=== PATIENT | male | born 1940 | race Caucasian/White ===

== ENCOUNTER 2023-12-26 12:53 | Outpatient (RCR) | payer MEDICARE, BC, SELFPAY | END 2024-01-20 23:59 | disposition home or self-care (01) | LOC: SCTC 12:53 | PROVIDERS: PCP Family Medicine; Referring Provider Family Medicine; Visit Provider Internal Medicine Hematology & Oncology | DX: C91.10 Chronic lymphocytic leukemia of B-cell type not having achieved remission (principal); C61 Malignant neoplasm of prostate; Z79.818 Long term (current) use of other agents affecting estrogen receptors and estrogen levels | CPT/HCPCS: 99212; G0463 ==

== ENCOUNTER 2024-02-05 14:31 | Outpatient (RCR) | payer MEDICARE, BC, SELFPAY | END 2024-02-20 23:59 | disposition home or self-care (01) | LOC: SCTC 14:31 | PROVIDERS: PCP Family Medicine; Referring Provider Family Medicine; Visit Provider Internal Medicine Hematology & Oncology | DX: Z51.11 Encounter for antineoplastic chemotherapy (principal); C61 Malignant neoplasm of prostate; Z92.3 Personal history of irradiation; C91.10 Chronic lymphocytic leukemia of B-cell type not having achieved remission | CPT/HCPCS: 96402; J9217 ==

== ENCOUNTER → 2024-02-05 | Outpatient (CLI) | payer MEDICARE, BC, SELFPAY ==
[2024-02-05 09:12] LABS: Alanine Aminotransferase 9 U/L (10-49); Albumin, Serum 4.6 gm/dL (3.4-4.8); Albumin/Globulin Ratio 1.9 (1.2-2.2); Alkaline Phosphatase 74 U/L (46-116); Anion Gap 7 (7-16); Aspartate Amino Transferase 18 U/L (0-34); BUN/Creatinine Ratio 11 Ratio (12-20); Bilirubin,Total 0.5 mg/dL (0.3-1.2); Blood Urea Nitrogen 17 mg/dL (9-23); Carbon Dioxide 27.9 mMol/L (20.0-31.0); Cardiac Risk Estimate 5.1 RATIO (4.0-6.7); Chloride 104 mMol/L (98-107); Cholesterol 228 mg/dL (132-200); Creatinine (Component) 1.5 mg/dL (0.6-1.3); Globulin 2.4 gm/dL (2.3-3.5); Glucose 102 mg/dL (74-106); HDL Cholesterol 45 mg/dL (40-60); LDL Cholesterol,Calculated 143 mg/dL (0-130); Osmolality,Calculated 279 (275-295); Potassium 4.6 mMol/L (3.4-5.1); Sodium 139 mMol/L (136-145); Triglycerides 199 mg/dL (30-150); eGFR 46 See Note
[2024-02-05 12:09] LABS: Glucose Estimated Average 111 mg/dL (80-131); Hemoglobin A1C 5.5 % Hgb (4.8-6.0)
== END | disposition home or self-care (01) ==
LOC: CDIM 07:54
PROVIDERS: PCP Family Medicine; Referring Provider Physician Assistant; Visit Provider Physician Assistant
DX: E78.5 Hyperlipidemia, unspecified (principal); R73.01 Impaired fasting glucose
CPT/HCPCS: 36415; 80053; 80061; 83036

== ENCOUNTER 2024-03-27 11:16 | Outpatient (RCR) | payer MEDICARE, BC, SELFPAY ==
--- NOTE | 2024-03-27 13:22 | CTCFLWUP_ITS ---
Patient: KITTY STRONG : 1940 Page 2 of 2 FOLLOW UP NOTE DATE OF SERVICE: 03/27/2024 NAME: KITTY STRONG ACCOUNT: [id number] : 1940 AGE: 83 INTERVAL HISTORY: Patient is here to follow-up on his labs. No new complaints ONCOLOGY HISTORY: DIAGNOSIS: Chronic lymphocytic leukemia of B-cell type in remission [ICD10] C91.11; Chronic lymphocytic leukemia of B-cell type not having achieved remission [ICD10] C91.10 TREATMENT HISTORY: Care?Plan Start?Date Cycle Day Intent Lupron?22.5?mg?q?3?mon 10/24/2023 1 90 Curative?(adjuvant) HISTORY OF PRESENT ILLNESS: Kitty Strong is a 83-year-old ENG speaking male with history of chronic lymphocytic leukemia who is referred back to our clinic for continuation of his care. Mr. Strong was initially diagnosed with chronic lymphocytic leukemia in June 2017. 03/28/2017: WBC 11.5, absolute lymphocyte count 7.29, hemoglobin 15.9, platelets 181,000. Peripheral smear showed lymphocytosis with smudge cells. 06/27/2017: Flow cytometry? 12/12/2019: WBC 16.6, ALC 11.1, ANC 4.3, hemoglobin 15.9, MCV 95, platelets 205,000. 10/19/2022: WBC 17.01, 48.0% lymphocytes, smudge cells present. 08/17/2023: Neotype CLL FISH panel? OTHER MEDICAL HISTORY/CONDITIONS: asthma??prostate?issues carpal tunnel surg x 2 left orif x 2019 ?Clone Other Med Hx? FAMILY HISTORY: Patient?denies?family?cancer?history. ?Clone Family Hx? 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 Tobacco?Pack?per?Day:?0 ETOH?Use:?deneis Drug?Note:?denies Social?History?Note:?live??with? ?Clone Social Hx? MEDICATIONS: 1. Flomax - 0.4 mg 1 Capsule Daily 2. multivitamin - 1 Capsule Daily?Palabra Meds? Medications Last Reconciled by Marine Weinberg MA on 03/27/2024 ALLERGIES: No Known Drug Allergies REVIEW OF SYSTEMS: A complete 14-point review of systems was performed and is negative except as noted in interval history. PHYSICAL EXAMINATION: VITAL SIGNS: Temperature?98.6, B/P?103/65, Oxygen?Saturation?97% Weight?207?lbs PAIN: 0 - No pain ECOG Performance Status: 0 - Asymptomatic and fully active GENERAL APPEARANCE: Appears well, in no apparent distress, appropriately interactive. HEENT: Normocephalic, no temporal wasting, normal conjunctiva, no scleral icterus, normal hearing, lips without lesions, neck normal range of motion. CARDIOVASCULAR: Not assessed. PULMONARY: Normal respiratory effort, no respiratory distress or use of accessory muscles, speaking in full sentences, no tachypnea. EXTREMITIES: No pedal edema or cyanosis. SKIN: Normal skin appearance. NEUROLOGIC: Alert and oriented x4. PSHYCHIATRIC: Appropriate affect, mood normal, behavior normal, intact thought and speech. LABORATORY DATA: I have personally reviewed and interpreted each of the patient?s relevant lab tests, abnormal findings are below: Date 03/27/24 ??WHITE?BLOOD?COUNT?(Thou/mm3) 13.6?H ??RED?BLOOD?COUNT?(Miln/mm3) 4.48?L ??HEMOGLOBIN?(gm/dl) 14.0 ??HEMATOCRIT?(%) 42.4 ??PLATELET?COUNT?(Thou/mm3) 185 ??NEUTROPHILS?%,?AUTO?(%) 27?L ??LYMPH?%,?AUTO?(%) 65?H ??NEUTROPHILS,?AUTO?(Thou/mm3) 3.7 ASSESSMENT/PLAN: #1 stage I asymptomatic chronic lymphocytic leukemia, CD38 negative. Neotype CLL FISH panel normal. Reviewed labs and are stable Continue Lupron #2 localized prostate cancer s/p radiation therapy at [facility] completed in May 2023. On Lupron Take calcium nd vit D3 Kegel exercises CBC CMP reviewed CBC CMP PSA RETURN TO CLINIC: 6 months BILLING AND COMPLIANCE: I reviewed external records from providers outside my specialty as summarized above. I spent a total of 50 minutes on this patient?s care on the day of their visit excluding time spent related to any billed procedures. This time includes time spent with the patient as well as time spent documenting in the medical record, reviewing patients records and tests, obtaining history, placing orders, communicating with other healthcare professionals, counseling the patient, family or caregiver, and/or care coordination for the diagnoses above. Electronically Signed by: Sebastian Romero MD T: 1:20 PM CC: PCP: Holly Cook Referring: Holly Cook This document was completed utilizing speech recognition software. Grammatical errors, random word insertions, pronoun errors, and incomplete sentences are an occasional consequence of this system due to software limitations, ambient noise, and hardware issues. Any formal questions or concerns about the content, text or information contained within the body of this dictation should be directly addressed to the provider for clarification.
== END 2024-04-19 23:59 | disposition home or self-care (01) ==
LOC: SCTC 11:16
PROVIDERS: PCP Family Medicine; Referring Provider Family Medicine; Visit Provider Internal Medicine Hematology & Oncology
DX: Z71.2 Person consulting for explanation of examination or test findings (principal); C91.10 Chronic lymphocytic leukemia of B-cell type not having achieved remission; C61 Malignant neoplasm of prostate; Z79.818 Long term (current) use of other agents affecting estrogen receptors and estrogen levels; Z92.3 Personal history of irradiation
CPT/HCPCS: 99212; G0463

== ENCOUNTER → 2024-03-27 | Outpatient (CLI) | payer MEDICARE, BC, SELFPAY ==
[2024-03-27 09:17] LABS: Basophils # (Auto) 0.1 Thou/mm3 (0.0-0.2); Basophils % (Auto) 0 % (0-2.5); Eosinophils # (Auto) 0.5 Thou/mm3 (0.0-0.5); Eosinophils % (Auto) 4 % (0-10); Hematocrit 42.4 % (41.0-53.0); Immature Granulocytes % (Auto) 0 % (0-0); Immature Granulocytes Auto 0.04 Thou/mm3 (0.00-0.00); Lymphocytes # (Auto) 8.8 Thou/mm3 (1.0-4.8); Lymphocytes % (Auto) 65 % (10-50); Mean Corpuscular Hemoglobin 31.3 pg (25.0-35.0); Mean Corpuscular Volume 95 fL (80-100); Monocytes # (Auto) 0.6 Thou/mm3 (0.0-0.8); Monocytes % (Auto) 4 % (0-12); Neutrophils # (Auto) 3.7 Thou/mm3 (1.8-7.7); Neutrophils % (Auto) 27 % (37-80); Nucleated Red Blood Cell % 0 /100 WBC (0); Platelet Count 185 Thou/mm3 (140-440); RDW Standard Deviation 46.8 fL (35.1-43.9); Red Blood Count 4.48 Miln/mm3 (4.50-5.90); White Blood Count 13.6 Thou/mm3 (3.8-10.6)
[2024-03-27 09:50] LABS: Alanine Aminotransferase 20 U/L (10-49); Albumin, Serum 4.1 gm/dL (3.4-4.8); Albumin/Globulin Ratio 1.6 (1.2-2.2); Alkaline Phosphatase 68 U/L (46-116); Anion Gap 9 (7-16); Aspartate Amino Transferase 15 U/L (0-34); BUN/Creatinine Ratio 14 Ratio (12-20); Bilirubin,Total 0.4 mg/dL (0.3-1.2); Blood Urea Nitrogen 18 mg/dL (9-23); Calcium 9.3 mg/dL (8.3-10.6); Calcium (Corrected) 9.3 mg/dL (8.5-10.1); Carbon Dioxide 28.5 mMol/L (20.0-31.0); Chloride 102 mMol/L (98-107); Creatinine (Component) 1.3 mg/dL (0.6-1.3); Globulin 2.5 gm/dL (2.3-3.5); Glucose 107 mg/dL (74-106); Osmolality,Calculated 279 (275-295); Potassium 4.2 mMol/L (3.4-5.1); Sodium 139 mMol/L (136-145); Total Protein 6.6 gm/dL (5.7-8.2); eGFR 55 See Note
[2024-03-27 14:48] LABS: Prostate Specific Antigen < 0.10 ng/mL (0-4.00)
[2024-03-27 16:51] LABS: Path Review Blood Smear Sent to Pathologist
== END | disposition home or self-care (01) ==
LOC: SCTO 08:30
PROVIDERS: PCP Family Medicine; Referring Provider Internal Medicine Hematology & Oncology; Visit Provider Internal Medicine Hematology & Oncology
DX: D72.820 Lymphocytosis (symptomatic) (principal)
CPT/HCPCS: 36415; 80053; 84153; 85025

== ENCOUNTER 2024-05-06 14:26 | Outpatient (RCR) | payer MEDICARE, BC, SELFPAY | END 2024-05-20 23:59 | disposition home or self-care (01) | LOC: SCTC 14:26 | PROVIDERS: PCP Family Medicine; Referring Provider Family Medicine; Visit Provider Internal Medicine Hematology & Oncology | DX: Z51.11 Encounter for antineoplastic chemotherapy (principal); C61 Malignant neoplasm of prostate; C91.10 Chronic lymphocytic leukemia of B-cell type not having achieved remission; Z92.3 Personal history of irradiation; Z79.818 Long term (current) use of other agents affecting estrogen receptors and estrogen levels | CPT/HCPCS: 96402; J9217 ==

== ENCOUNTER → 2024-06-10 | Outpatient (CLI) | payer MEDICARE, BC, SELFPAY ==
--- NOTE | 2024-06-10 11:02 | XR_ITS ---
Examination: Foot, left, 3 views Technique: AP, oblique, lateral views foot, 3 views Date and time of exam: June 10, 2024 1144 hours INDICATIONS: Left foot swelling and pain beginning 4 days ago FINDINGS: Severe osteopenia Moderate bunion deformity Erosions distal medial first metatarsal No fracture No opaque foreign body IMPRESSION: Small erosions medial distal first metatarsal, differential would include erosive arthritis such as gouty arthropathy as well as early osteomyelitis, clinical correlation advised
[2024-06-10 13:50] LABS: Basophils % (Auto) 0 % (0-2.5); Eosinophils # (Auto) 0.3 Thou/mm3 (0.0-0.5); Eosinophils % (Auto) 3 % (0-10); Hematocrit 42.3 % (41.0-53.0); Hemoglobin 13.9 g/dL (13.5-16.0); Immature Granulocytes % (Auto) 0 % (0-0); Immature Granulocytes Auto 0.05 Thou/mm3 (0.00-0.00); Lymphocytes # (Auto) 6.7 Thou/mm3 (1.0-4.8); Lymphocytes % (Auto) 54 % (10-50); Mean Corpuscular HGB Conc 32.9 g/dl (31.0-37.0); Mean Corpuscular Hemoglobin 31.4 pg (25.0-35.0); Mean Corpuscular Volume 96 fL (80-100); Monocytes # (Auto) 0.7 Thou/mm3 (0.0-0.8); Monocytes % (Auto) 5 % (0-12); Neutrophils # (Auto) 4.7 Thou/mm3 (1.8-7.7); Neutrophils % (Auto) 38 % (37-80); Nucleated Red Blood Cell % 0 /100 WBC (0); Platelet Count 185 Thou/mm3 (140-440); RDW Standard Deviation 47.8 fL (35.1-43.9); Red Blood Count 4.43 Miln/mm3 (4.50-5.90); White Blood Count 12.4 Thou/mm3 (3.8-10.6)
[2024-06-10 14:06] LABS: Alanine Aminotransferase 15 U/L (10-49); Albumin, Serum 4.3 gm/dL (3.4-4.8); Albumin/Globulin Ratio 1.5 (1.2-2.2); Alkaline Phosphatase 72 U/L (46-116); Anion Gap 6 (7-16); Aspartate Amino Transferase 18 U/L (0-34); BUN/Creatinine Ratio 14 Ratio (12-20); Bilirubin,Total 0.4 mg/dL (0.3-1.2); Blood Urea Nitrogen 19 mg/dL (9-23); Calcium 9.9 mg/dL (8.3-10.6); Calcium (Corrected) 9.9 mg/dL (8.5-10.1); Carbon Dioxide 28.7 mMol/L (20.0-31.0); Chloride 104 mMol/L (98-107); Creatinine (Component) 1.4 mg/dL (0.6-1.3); Globulin 2.8 gm/dL (2.3-3.5); Glucose 102 mg/dL (74-106); Osmolality,Calculated 279 (275-295); Sodium 139 mMol/L (136-145); Total Protein 7.1 gm/dL (5.7-8.2); Uric Acid 7.3 mg/dL (3.7-9.2); eGFR 50 See Note
== END | disposition home or self-care (01) ==
LOC: CDIM 10:59 → COPL 12:05
PROVIDERS: PCP Physician Assistant; Referring Provider Physician Assistant; Visit Provider Physician Assistant
DX: M79.672 Pain in left foot (principal)
CPT/HCPCS: 36415; 73630; 80053; 84550; 85025

== ENCOUNTER 2024-08-05 14:33 | Outpatient (RCR) | payer MEDICARE, BC, SELFPAY | END 2024-08-19 23:59 | disposition home or self-care (01) | LOC: SCTC 14:33 | PROVIDERS: PCP Physician Assistant; Referring Provider Physician Assistant; Visit Provider Internal Medicine Hematology & Oncology | DX: Z51.11 Encounter for antineoplastic chemotherapy (principal); C61 Malignant neoplasm of prostate; C91.10 Chronic lymphocytic leukemia of B-cell type not having achieved remission | CPT/HCPCS: 96402; J9217 ==

== ENCOUNTER 2024-11-04 14:40 | Outpatient (RCR) | payer MEDICARE, BC, SELFPAY | END 2024-11-19 23:59 | disposition home or self-care (01) | LOC: SCTC 14:40 | PROVIDERS: PCP Physician Assistant; Referring Provider Physician Assistant; Visit Provider Internal Medicine Hematology & Oncology | DX: Z51.11 Encounter for antineoplastic chemotherapy (principal); C61 Malignant neoplasm of prostate; Z92.3 Personal history of irradiation; C91.10 Chronic lymphocytic leukemia of B-cell type not having achieved remission | CPT/HCPCS: 96402; J9217 ==

== ENCOUNTER → 2024-11-13 | Outpatient (CLI) | payer MEDICARE, BC, SELFPAY ==
[2024-11-13 10:54] LABS: Prostate Specific Antigen < 0.10 ng/mL (0-4.00)
[2024-11-13 10:56] LABS: Cardiac Risk Estimate 5.1 RATIO (4.0-6.7); Cholesterol 197 mg/dL (132-200); HDL Cholesterol 39 mg/dL (40-60); LDL Cholesterol,Calculated 112 mg/dL (0-130); Triglycerides 228 mg/dL (30-150)
[2024-11-20 07:05] LABS: Testosterone,Total* 4 ng/dL (250-1100)
== END | disposition home or self-care (01) ==
LOC: COPL 08:59
PROVIDERS: PCP Physician Assistant; Referring Provider Internal Medicine Cardiovascular Disease; Visit Provider Internal Medicine Cardiovascular Disease
DX: E78.41 Elevated Lipoprotein(a) (principal); E78.5 Hyperlipidemia, unspecified; N28.9 Disorder of kidney and ureter, unspecified; R73.03 Prediabetes; R94.31 Abnormal electrocardiogram [ECG] [EKG]; Z03.89 Encounter for observation for other suspected diseases and conditions ruled out; C61 Malignant neoplasm of prostate
CPT/HCPCS: 36415; 80061; 84153; 84403

== ENCOUNTER 2024-11-25 11:47 | Outpatient (RCR) | payer MEDICARE, BC, SELFPAY ==
--- NOTE | 2024-11-25 13:20 | CTCFLWUP_ITS ---
Patient: KITTY STRONG : 1940 Page 4 of 5 FOLLOW UP NOTE DATE OF SERVICE: 11/25/2024 NAME: KITTY STRONG ACCOUNT: [id number] : 1940 AGE: 84 INTERVAL HISTORY: Patient is here to follow-up on his labs. No new complaints ONCOLOGY HISTORY: DIAGNOSIS: Chronic lymphocytic leukemia of B-cell type in remission [ICD10] C91.11; Chronic lymphocytic leukemia of B-cell type not having achieved remission [ICD10] C91.10 TREATMENT HISTORY: Care?Plan Start?Date Cycle Day Intent Lupron?22.5?mg?q?3?mon 10/24/2023 1 90 Curative?(adjuvant) HISTORY OF PRESENT ILLNESS: Kitty Strong is a 84-year-old ENG speaking male with history of chronic lymphocytic leukemia who is referred back to our clinic for continuation of his care. Mr. Strong was initially diagnosed with chronic lymphocytic leukemia in June 2017. 03/28/2017: WBC 11.5, absolute lymphocyte count 7.29, hemoglobin 15.9, platelets 181,000. Peripheral smear showed lymphocytosis with smudge cells. 06/27/2017: Flow cytometry? 12/12/2019: WBC 16.6, ALC 11.1, ANC 4.3, hemoglobin 15.9, MCV 95, platelets 205,000. 10/19/2022: WBC 17.01, 48.0% lymphocytes, smudge cells present. 08/17/2023: Neotype CLL FISH panel? OTHER MEDICAL HISTORY/CONDITIONS: asthma??prostate?issues carpal tunnel surg x 2 left orif x 2019 FAMILY HISTORY: Patient?denies?family?cancer?history. 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 Tobacco?Pack?per?Day:?0 ETOH?Use:?deneis Drug?Note:?denies Social?History?Note:?live??with? MEDICATIONS: 1. Flomax - 0.4 mg 1 Capsule Daily 2. Lipitor - 20 mg 1 tab Daily 3. multivitamin - 1 Capsule Daily Medications Last Reconciled by Marine Frye MD on 11/25/2024 ALLERGIES: No Known Drug Allergies REVIEW OF SYSTEMS: A complete 14-point review of systems was performed and is negative except as noted in interval history. PHYSICAL EXAMINATION: VITAL SIGNS: Temperature?98.3, B/P?104/63, Oxygen?Saturation?96% Weight?203?lbs (Change?since?11/04/24:?0?lbs) PAIN: 0 - No pain ECOG Performance Status: 0 - Asymptomatic and fully active GENERAL APPEARANCE: Appears well, in no apparent distress, appropriately interactive. HEENT: Normocephalic, no temporal wasting, normal conjunctiva, no scleral icterus, normal hearing, lips without lesions, neck normal range of motion. CARDIOVASCULAR: Not assessed. PULMONARY: Normal respiratory effort, no respiratory distress or use of accessory muscles, speaking in full sentences, no tachypnea. EXTREMITIES: No pedal edema or cyanosis. SKIN: Normal skin appearance. NEUROLOGIC: Alert and oriented x4. PSHYCHIATRIC: Appropriate affect, mood normal, behavior normal, intact thought and speech. LABORATORY DATA: I have personally reviewed and interpreted each of the patient?s relevant lab tests, abnormal findings are below: Date 03/27/24 06/10/24 ??WHITE?BLOOD?COUNT?(Thou/mm3) 13.6?H 12.4?H ??RED?BLOOD?COUNT?(Miln/mm3) 4.48?L 4.43?L ??HEMOGLOBIN?(gm/dl) 14.0 13.9 ??HEMATOCRIT?(%) 42.4 42.3 ??PLATELET?COUNT?(Thou/mm3) 185 185 ??NEUTROPHILS?%,?AUTO?(%) 27?L 38 ??LYMPH?%,?AUTO?(%) 65?H 54?H ??NEUTROPHILS,?AUTO?(Thou/mm3) 3.7 4.7 ??GLUCOSE,RANDOM?(mg/dL) 107?H 102 ??BLOOD?UREA?NITROGEN?(mg/dL) 18 19 ??CREATININE?(mg/dL) 1.30 1.40?H ??SODIUM?(mmol/L) 139 139 ??POTASSIUM?(mmol/L) 4.2 4.0 ??CHLORIDE?(mmol/L) 102 104 ??CrCl?(CandG)?(ml/min) 48.14 44.86 ??AST/SGOT?(Unit/L) 15 18 ??ALT/SGPT?(Unit/L) 20 15 ??ALKALINE?PHOSPHATASE?(Unit/L) 68 72 ??BILIRUBIN,?TOTAL?(mg/dL) 0.4 0.4 ??PROTEIN?TOTAL?(gm/dl) 6.6 7.1 ??ALBUMIN,?SERUM?(gm/dl) 4.1 4.3 ??GLOBULIN?(gm/dl) 2.5 2.8 ??ALBUMIN/GLOBULIN?RATIO 1.6 1.5 ??CALCIUM,?SERUM?(mg/dL) 9.3 9.9 ??CALCIUM?SERUM?(CORRECTED)?(mg/dL) 9.3 9.9 ASSESSMENT/PLAN: #1 stage I asymptomatic chronic lymphocytic leukemia, CD38 negative. Neotype CLL FISH panel normal. Reviewed labs and are stable Continue Lupron #2 localized prostate cancer s/p radiation therapy at [facility] completed in May 2023. On Lupron Take calcium nd vit D3 Kegel exercises CBC CMP reviewed CBC CMP PSA Continue Lupron RETURN TO CLINIC: I reviewed the diagnosis, prognosis, and recommended treatment/procedure options with the patient (and/or their legal veterans service representative), including the potential benefits, risks, side effects and alternative therapies. We also discussed the option of no treatment and the possibility of clinical trial participation, if applicable. All questions were addressed, and they demonstrated understanding. They provided informed consent to proceed with the proposed plan of care. BILLING AND COMPLIANCE: I reviewed external records from providers outside my specialty as summarized above. I spent a total of 50 minutes on this patient?s care on the day of their visit excluding time spent related to any billed procedures. This time includes time spent with the patient as well as time spent documenting in the medical record, reviewing patients records and tests, obtaining history, placing orders, communicating with other healthcare professionals, counseling the patient, family or caregiver, and/or care coordination for the diagnoses above. Electronically Signed by: Sebastian Romero MD T: 1:18 PM CC: PCP: Lo Kuhn Referring: oL Kuhn This document was completed utilizing speech recognition software. Grammatical errors, random word insertions, pronoun errors, and incomplete sentences are an occasional consequence of this system due to software limitations, ambient noise, and hardware issues. Any formal questions or concerns about the content, text or information contained within the body of this dictation should be directly addressed to the provider for clarification.
== END 2024-12-20 23:59 | disposition home or self-care (01) ==
LOC: SCTC 11:47
PROVIDERS: PCP Physician Assistant; Referring Provider Physician Assistant; Visit Provider Internal Medicine Hematology & Oncology
DX: C91.10 Chronic lymphocytic leukemia of B-cell type not having achieved remission (principal); C61 Malignant neoplasm of prostate; Z92.3 Personal history of irradiation; Z79.818 Long term (current) use of other agents affecting estrogen receptors and estrogen levels
CPT/HCPCS: 99212; G0463

== ENCOUNTER → 2025-01-06 | Outpatient (CLI) | payer MEDICARE, BC, SELFPAY ==
[2025-01-06 09:07] LABS: Collection Type, Urine Clean Catch; Squamous Epithelial Cell,Urine 0 /hpf (0-5)
[2025-01-06 09:43] LABS: Bilirubin,Urine Negative (Negative); Blood,Urine Negative (Negative); Clarity,Urine Clear (Clear/Hazy); Color,Urine Colorless (Lt Yel-Yel); Culture Indicated,Urine Not Indicated; Glucose, Urine Negative (Negative); Ketones,Urine Negative (Negative); Leukocyte Esterase,Urine Negative (Negative); Nitrite,Urine Negative (Negative); PH,Urine 6.0 (5.0-7.0); Protein,Urine Negative (Neg - Trace); RBC,Urine 1 /hpf (0-3); Specific Gravity,Urine 1.011 (1.001-1.035); Urobilinogen,Urine Negative mg/dL (0.0-1.0); WBC,Urine < 1 /hpf (0-5)
[2025-01-06 09:52] LABS: Alanine Aminotransferase 17 U/L (10-49); Albumin, Serum 4.6 gm/dL (3.4-4.8); Albumin/Globulin Ratio 2.0 (1.2-2.2); Alkaline Phosphatase 66 U/L (46-116); Anion Gap 10 (7-16); Aspartate Amino Transferase 21 U/L (0-34); BUN/Creatinine Ratio 13 Ratio (12-20); Bilirubin,Total 0.4 mg/dL (0.3-1.2); Blood Urea Nitrogen 19 mg/dL (9-23); Calcium 10.0 mg/dL (8.3-10.6); Calcium (Corrected) 10.0 mg/dL (8.5-10.1); Carbon Dioxide 27.1 mMol/L (20.0-31.0); Cardiac Risk Estimate 3.4 RATIO (4.0-6.7); Chloride 105 mMol/L (98-107); Cholesterol 149 mg/dL (132-200); Creatinine (Component) 1.5 mg/dL (0.6-1.3); Globulin 2.3 gm/dL (2.3-3.5); Glucose 113 mg/dL (74-106); HDL Cholesterol 44 mg/dL (40-60); LDL Cholesterol,Calculated 80 mg/dL (0-130); Osmolality,Calculated 286 (275-295); Potassium 4.5 mMol/L (3.4-5.1); Sodium 142 mMol/L (136-145); Thyroid Stimulating Hormone 4.46 uIU/mL (0.55-4.78); Total Protein 6.9 gm/dL (5.7-8.2); Triglycerides 127 mg/dL (30-150); eGFR 46 See Note
[2025-01-06 09:55] LABS: Vitamin B12 302 pg/mL (211-911); Vitamin D 25 Hydroxy Total 34.4 ng/mL (7.3-40.2)
[2025-01-06 09:56] LABS: Prostate Specific Antigen < 0.10 ng/mL (0-4.00)
[2025-01-06 10:00] LABS: Basophils # (Auto) 0.1 Thou/mm3 (0.0-0.2); Basophils % (Auto) 0 % (0-2.5); Eosinophils # (Auto) 0.4 Thou/mm3 (0.0-0.5); Eosinophils % (Auto) 3 % (0-10); Glucose Estimated Average 114 mg/dL (80-131); Hematocrit 43.8 % (41.0-53.0); Hemoglobin 14.4 g/dL (13.5-16.0); Hemoglobin A1C 5.6 % Hgb (4.8-6.0); Immature Granulocytes Auto 0.05 Thou/mm3 (0.00-0.00); Lymphocytes # (Auto) 10.1 Thou/mm3 (1.0-4.8); Lymphocytes % (Auto) 64 % (10-50); Mean Corpuscular HGB Conc 32.9 g/dl (31.0-37.0); Mean Corpuscular Hemoglobin 31.4 pg (25.0-35.0); Mean Corpuscular Volume 95 fL (80-100); Monocytes # (Auto) 0.7 Thou/mm3 (0.0-0.8); Monocytes % (Auto) 4 % (0-12); Neutrophils # (Auto) 4.6 Thou/mm3 (1.8-7.7); Neutrophils % (Auto) 29 % (37-80); Nucleated Red Blood Cell # 0.03 Thou/mm3 (0.00-0.00); Nucleated Red Blood Cell % 0 /100 WBC (0); Platelet Count 191 Thou/mm3 (140-440); RDW Standard Deviation 47.9 fL (35.1-43.9); Red Blood Count 4.59 Miln/mm3 (4.50-5.90); White Blood Count 15.8 Thou/mm3 (3.8-10.6)
== END | disposition home or self-care (01) ==
LOC: COPL 08:02
PROVIDERS: PCP Family Medicine; Referring Provider Physician Assistant; Visit Provider Physician Assistant
DX: N18.30 Chronic kidney disease, stage 3 unspecified (principal); E78.5 Hyperlipidemia, unspecified; R73.01 Impaired fasting glucose; E55.9 Vitamin D deficiency, unspecified; C91.10 Chronic lymphocytic leukemia of B-cell type not having achieved remission; C61 Malignant neoplasm of prostate
CPT/HCPCS: 36415; 80053; 80061; 81001; 82306; 82607; 83036; 84153; 84443; 85025

== ENCOUNTER 2025-02-03 14:22 | Outpatient (RCR) | payer MEDICARE, BC, SELFPAY | END 2025-02-19 23:59 | disposition home or self-care (01) | LOC: SCTC 14:22 | PROVIDERS: PCP Family Medicine; Referring Provider Family Medicine; Visit Provider Internal Medicine Hematology & Oncology | DX: Z51.11 Encounter for antineoplastic chemotherapy (principal); C61 Malignant neoplasm of prostate; C91.10 Chronic lymphocytic leukemia of B-cell type not having achieved remission | CPT/HCPCS: 96365; 96402; J9217 ==